=== PATIENT | female | born 1980 ===

== ENCOUNTER 2017-11-30 12:41 | Day surgery (SDC) | payer OTHER ==
[2017-11-26 07:38] VITALS: BMI 30.4
[2017-11-30] MEDS ORDERED: HYDROmorphone 0.5 mg/0.5 ml ISec IVP PRN (15:06)
--- NOTE | 2017-11-30 16:01 | PCM.SURG1 ---
Surgeon's Initial Post Op Note - Surgeon's Notes Surgeon: Noelle Silva MD Agile Test Lead: none Type of Anesthesia: General LMA Pre-Operative Diagnosis: abnormal uterine bleeding, dysmenorrhea Operative Findings: 8-10 week size uterus small polyoid tissue near left tubal ostial, bilatearl tubal ostia visulzed, submcuosal myoma <1cm on right wall , urine 30 cc clear Post-Operative Diagnosis: same as above, submcosal myoma Operation Performed: Hysteroscopic myomectomy, fractional dilation adn currettage Specimen/Specimens Removed: endocervical currettings, endometiral currettings, sumbucosal myoma Estimated Blood Loss: EBL {In ML}: 5 Blood Products Given: N/A Drains Used: No Drains Post-Op Condition: Good Date of Surgery/Procedure: 11/30/17 Time of Surgery/Procedure: 15:00
[2017-11-30 17:31] VITALS: O2SAT 100
[2017-11-30 17:50] VITALS: BP 110/61; PULSE 93; RESP 16
[2017-11-30 17:51] VITALS: TEMP 97.9
--- NOTE | 2017-12-01 03:16 | OP ---
PROCEDURE DATE: 11/30/2017 SURGEON: Noelle Silva MD. FREIGHT RATE CLERK: None. TYPE OF ANESTHESIA: General LMA. PREOPERATIVE DIAGNOSES: Abnormal uterine bleeding, dysmenorrhea. POSTOPERATIVE DIAGNOSES: Abnormal uterine bleeding, dysmenorrhea, submucosal myoma. OPERATIVE FINDINGS: A 8 to 10-week size uterus, polypoid tissue in the left tubal ostia. Bilateral ostia visualized. Submucosal myoma less than 1 cm . URINE OUTPUT: 30 mL of clear yellow urine. OPERATION PERFORMED: Hysteroscopic myomectomy, fractional dilation and curettage. SPECIMENS: Endocervical curettings, endometrial curettings, submucosal myoma. ESTIMATED BLOOD LOSS: 5 mL. BLOOD PRODUCTS: None. COMPLICATIONS: None. DESCRIPTION OF PROCEDURE: The patient was taken to the operating room where she was given general anesthesia. Once it was found to be adequate, she was positioned on the operating table in a dorsal supine position. The patient was then prepped and draped in the usual sterile fashion. A time-out confirmed correct patient and correct procedure. Bimanual exam was performed. A red-rubber catheter was then inserted into the urethra to drain the bladder. Following this, a Aaron retractor was placed in the anterior and posterior fornix of the vagina. The cervix was adequately visualized. A single-tooth tenaculum was placed in the anterior lip of the cervix. Endocervical curettings were obtained with a Iftikharian curette and sent to Pathology on [facility]. The uterus was then sounded to 8 cm. Following this, the cervix was sequentially dilated to allow for introduction of a 5-mm hysteroscope under direct visualization using normal saline as the distention media. Bilateral ostia were visualized with the polypoid tissue near the ostia and the submucosal myoma. The MyoSure device was then inserted under direct visualization. The mass was then carefully resected. There was good hemostasis noted. The hysteroscope was then removed, and gentle curettage was done up to 360 degrees until gritty texture was noted. Specimen was sent to Pathology. All instruments were removed. There was good hemostasis at the tenaculum puncture sites. At the end of the procedure, all needle, sponge and instrument counts were noted and correct x2. The patient tolerated the procedure well and was transferred to the recovery room in stable condition. Noelle Silva MD
== END 2017-11-30 17:50 | disposition home or self-care (01) ==
LOC: C.SDS 12:41
PROVIDERS: ATTEND Obstetrics & Gynecology
DX: D25.0 Submucous leiomyoma of uterus (principal); N93.9 Abnormal uterine and vaginal bleeding, unspecified; N94.6 Dysmenorrhea, unspecified; Z98.51 Tubal ligation status; Z98.890 Other specified postprocedural states